=== PATIENT | male | born 1965 | race Caucasian/White ===

== ENCOUNTER 2019-09-29 13:00 | Emergency (ER) | payer SELFPAY ==
--- NOTE | 2019-09-29 14:21 | EDM.PDOC ---
ED HPI GENERAL MEDICAL PROBLEM - General Chief Complaint: ENT Problem Stated Complaint: EAR INFECTION Time Seen by Provider: 09/29/19 13:49 Source of Information: Reports: Patient History Limitations: Reports: No Limitations - History of Present Illness INITIAL COMMENTS - FREE TEXT/NARRATIVE: Patient is a 54-year-old male who presents with complaints of infection to his bilateral external ears. He states this has been going on for 2 months. He does have open areas and will drain intermittently. He was seen in the walk-in clinic at [facility] about 10 days ago and started on a course of clindamycin 3 times daily for 7 days. He states he's been off of these medications for about 3 days and continues to have pain and drainage to the area. Denies any fevers or chills. Onset: Other - Related Data Allergies Allergy/AdvReac Type Severity Reaction Status Date / Time No Known Allergies Allergy Verified 02/04/16 17:01 Home Meds: Home Meds LORazepam [Ativan] 1 mg PO Q4H PRN 02/04/16 [History] Sertraline HCl 100 mg PO DAILY 02/04/16 [History] atenoloL [Atenolol] 150 mg PO BID 02/04/16 [History] Doxycycline [Vibramycin] 100 mg PO BID #20 cap 09/29/19 [Rx] Mupirocin Calcium [Mupirocin] 15 gm TP TID 10 Days #1 cream..g. 09/29/19 [Rx] Past Medical History HEENT History: Reports: Impaired Vision Cardiovascular History: Reports: Hypertension Genitourinary History: Reports: Renal Calculus, Other (See Below) Other Genitourinary History: history of kidney stones Psychiatric History: Reports: Anxiety, Depression - Past Surgical History HEENT Surgical History: Reports: Tonsillectomy Male Surgical History: Reports: Kidney Stone Extraction Social & Family History - Family History Family Medical History: Noncontributory - Tobacco Use Smoking Status *Q: Current Every Day Smoker Years of Tobacco use: 30 Packs/Tins Daily: 0.3 - Caffeine Use Caffeine Use: Reports: Coffee, Soda - Alcohol Use Days Per Week of Alcohol Use: 7 Number of Drinks Per Day: 4 Total Drinks Per Week: 28 - Recreational Drug Use Recreational Drug Use: Yes Drug Use in Last 12 Months: Yes Recreational Drug Type: Reports: Marijuana/Hashish Recreational Drug Use Frequency: Socially ED ROS ENT - Review of Systems Review Of Systems: Comprehensive ROS is negative, except as noted in HPI. ED EXAM, ENT - Physical Exam Exam: See Below Exam Limited By: No Limitations General Appearance: Alert, WD/WN, No Apparent Distress Ears: Normal Canal, Normal TMs, Auricular Erythema, Auricular Tenderness, Other (scattered scabs to bilateral auricles) Mouth/Throat: Normal Inspection, Normal Oropharynx Neck: Supple, Non-Tender, Lymphadenopathy (L), Lymphadenopathy (R) Respiratory/Chest: No Respiratory Distress, Lungs Clear, Normal Breath Sounds, No Accessory Muscle Use, Chest Non-Tender Cardiovascular: Normal Peripheral Pulses, Regular Rate, Rhythm, No Edema, No Murmur Neurological: Alert, Oriented, Normal Cognition Psychiatric: Normal Affect, Normal Mood Course - Vital Signs Last Recorded V/S: Last Vital Signs Temp 99.6 F 09/29/19 13:32 Pulse 93 09/29/19 13:32 Resp 16 09/29/19 13:32 BP 150/112 H 09/29/19 13:32 Pulse Ox 97 09/29/19 13:32 - Re-Assessments/Exams Free Text/Narrative Re-Assessment/Exam: on exam, patient does appear to have cellulitis of the bilateral external ears. TMs and ear canals are normal. He appears to have been picking at the areas as there are scattered scabs throughout. I did call [facility] walk-in clinic and was advised the patient was put on clindamycin for 7 days. Patient reports that he did finish this treatment. I will start him on a course of doxycycline 100 mg twice daily for 10 days. I will also order muprocin ointment to applied topically. I will recommend that he follows up with a primary care provider at the completion of that treatment to have his ears reassessed. Discharge instructions as noted. Departure - Departure Time of Disposition: 14:21 Disposition: Home, Self-Care 01 Condition: Fair Clinical Impression: Cellulitis of external ear, bilateral - Discharge Information *PRESCRIPTION DRUG MONITORING PROGRAM REVIEWED*: No *COPY OF PRESCRIPTION DRUG MONITORING REPORT IN PATIENT CARL: No Prescriptions: Doxycycline [Vibramycin] 100 mg PO BID #20 cap Mupirocin Calcium [Mupirocin] 15 gm TP TID 10 Days #1 cream..g. Instructions: Cellulitis, Adult, [id number] Referrals: PCP,None [Primary Care Provider] - Forms: ED Department Discharge Additional Instructions: You were seen in the emergency department today for infection of both external ears. you have been started on a course of doxycycline twice daily for 10 days. Take this medications as prescribed. Try to avoid picking at the areas as this can make the infection worse or spread. I recommend that you follow-up with a primary care provider at the completion of this treatment to have your ears rechecked. If you experience any new or worsening symptoms, please do not hesitate to return to the emergency department. Sepsis Event Note - Evaluation Sepsis Screening Result: No Definite Risk - Focused Exam Vital Signs: Vital Signs Temp Pulse Resp BP Pulse Ox 09/29/19 13:32 99.6 F 93 16 150/112 H 97 Date Exam was Performed: 09/29/19 Time Exam was Performed: 17:15
== END 2019-09-29 15:05 | disposition home or self-care (01) ==
LOC: JD.ED 13:00
CPT/HCPCS: 99282; 99283

== ENCOUNTER 2020-08-05 18:25 | Emergency (ER) | payer MEDICAID ==
[2020-08-05 18:39] VITALS: BP 121/92; PULSE 92
[2020-08-05] MEDS ORDERED: Doxycycline 100 MG Cap PO ONE (18:58)
--- NOTE | 2020-08-05 19:11 | EDM.PDOC ---
ED HPI GENERAL MEDICAL PROBLEM - General Chief Complaint: Skin Complaint Stated Complaint: SKIN INFECTION SPREADING Time Seen by Provider: 08/05/20 18:44 Source of Information: Reports: Patient, RN Notes Reviewed History Limitations: Reports: No Limitations - History of Present Illness INITIAL COMMENTS - FREE TEXT/NARRATIVE: Patient is a 55-year-old male presenting to the emergency department with complaints of a skin infection on his face. Symptoms began around of this last week which would have been 4 days ago. He states that there was a small area on his right cheek that was quite red, however this has since gone down. He also complains of crusting and drainage to his left earlobe and left cheek near the left tragus. Patient admits that he is constantly picking at the area. On , he took a needle to an area that he thought was a pimple on the left side of his face and it slipped causing a 4 cm laceration near his ear. He states "I probably should have come in to get it closed". He denies any fever, chills, nausea, vomiting, or diarrhea. Patient does have a history of skin infections to his ears and face, likely MRSA. He was seen in this emergency department approximate 10 months ago with similar symptoms. He was fully put on clindamycin at the walk-in clinic which did not clear the infection. Here in the ER, he was put on doxycycline which she states did resolve the infection. - Related Data Allergies Allergy/AdvReac Type Severity Reaction Status Date / Time No Known Allergies Allergy Verified 08/05/20 18:40 Home Meds: Home Meds LORazepam [Ativan] 1 mg PO Q4H PRN 02/04/16 [History] atenoloL [Atenolol] 150 mg PO BID 02/04/16 [History] Mupirocin Calcium [Mupirocin] 15 gm TP TID 10 Days #1 cream..g. 09/29/19 [Rx] Doxycycline [Vibramycin] 100 mg PO BID 14 Days #28 tab 08/05/20 [Rx] Past Medical History HEENT History: Reports: Impaired Vision Cardiovascular History: Reports: Hypertension Genitourinary History: Reports: Renal Calculus, Other (See Below) Other Genitourinary History: history of kidney stones Psychiatric History: Reports: Anxiety, Depression - Infectious Disease History Infectious Disease History: Reports: Other (See Below) Other Infectious Disease History: staph - Past Surgical History HEENT Surgical History: Reports: Tonsillectomy Male Surgical History: Reports: Kidney Stone Extraction Social & Family History - Family History Family Medical History: No Pertinent Family History - Tobacco Use Tobacco Use Status *Q: Current Every Day Tobacco User Years of Tobacco use: 30 Packs/Tins Daily: 0.7 - Caffeine Use Caffeine Use: Reports: Coffee, Soda - Alcohol Use Days Per Week of Alcohol Use: 7 Number of Drinks Per Day: 6 Total Drinks Per Week: 42 - Recreational Drug Use Recreational Drug Use: Yes Recreational Drug Type: Reports: Marijuana/Hashish Recreational Drug Use Frequency: Daily ED ROS GENERAL - Review of Systems Review Of Systems: See Below Constitutional: Reports: No Symptoms. Denies: Fever, Chills, Weakness Respiratory: Reports: No Symptoms Cardiovascular: Reports: No Symptoms Endocrine: Reports: No Symptoms GI/Abdominal: Reports: No Symptoms : Reports: No Symptoms Musculoskeletal: Reports: No Symptoms Skin: Reports: Other ("Skin infection "right cheek, left cheek, and left earlobe) Neurological: Reports: No Symptoms Psychiatric: Reports: No Symptoms Hematologic/Lymphatic: Reports: No Symptoms Immunologic: Reports: No Symptoms ED EXAM, SKIN/RASH Exam: See Below Exam Limited By: No Limitations General Appearance: Alert, WD/WN, Anxious, Other (Fidgety, picking at his face and ears) Ears: Normal Canal, Normal TMs, Other (Small open, crusted lesion to the left earlobe.) Head: Other (One centimeter erythematous area to right cheek. 5 cm dry, crusted area in the left cheek. 4 cm gaping, dried, laceration to the left cheek near the ear. No obvious, redness or warmth to the area.) Respiratory/Chest: No Respiratory Distress, Lungs Clear, Normal Breath Sounds, No Accessory Muscle Use, Chest Non-Tender Cardiovascular: Normal Peripheral Pulses, Regular Rate, Rhythm, No Edema, No Gallop, No JVD, No Murmur, No Rub GI/Abdominal: Normal Bowel Sounds, Soft, Non-Tender, No Organomegaly, No Distention, No Abnormal Bruit, No Mass Neurological: Alert, Oriented, CN II-XII Intact, Normal Cognition, Normal Gait, Normal Reflexes, No Motor/Sensory Deficits Psychiatric: Normal Affect, Normal Mood Course - Vital Signs Last Recorded V/S: Last Vital Signs Temp 98.1 F 08/05/20 18:38 Pulse 92 08/05/20 18:38 Resp 18 08/05/20 18:38 BP 121/92 H 08/05/20 18:38 Pulse Ox 100 08/05/20 18:38 - Orders/Labs/Meds Meds: Medications Discontinued Medications Generic Name Dose Route Start Last Admin Trade Name Megan PRN Reason Stop Dose Admin Doxycycline Hyclate 200 mg 08/05/20 18:58 08/05/20 19:03 Vibramycin PO 08/05/20 18:59 200 mg ONETIME ONE Administration - Re-Assessments/Exams Free Text/Narrative Re-Assessment/Exam: Patient is a 55-year-old male presenting to the emergency department with complaints of "skin infection "scattered on his face. On exam, there is a 1 cm area of redness and erythema to the right cheek with no drainage. On the left side of his face, there is a 5 cm rounded area that is dried and crusted over. He has a 4 cm gaping laceration that is dried and not draining. There is a small, crusted lesion on his left earlobe. I had seen this patient in the emergency department proxy 10 months ago with similar symptoms, however this is much more minor as compared to his condition 10 months ago. Patient chronically picks at his face. 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 He has no signs of systemic infection. He has had no fevers, vital signs in triage were stable, he has had no nausea, vomiting, or diarrhea. He responded well to doxycycline last time. We will start him on doxycycline 100 mg twice daily for 14 days. He will receive a 200 mg dose in the ER tonight and a prescription will be sent to his pharmacy. Recommend that he follow-up with his primary care provider on Thursday or of this week to have it rechecked. Return to ER as needed. Departure - Departure Time of Disposition: 19:14 Disposition: Home, Self-Care 01 Condition: Good Clinical Impression: Cellulitis Qualifiers: Site of cellulitis: face Qualified Code(s): L03.211 - Cellulitis of face - Discharge Information *PRESCRIPTION DRUG MONITORING PROGRAM REVIEWED*: No *COPY OF PRESCRIPTION DRUG MONITORING REPORT IN PATIENT CARL: No Prescriptions: Doxycycline [Vibramycin] 100 mg PO BID 14 Days #28 tab Instructions: Cellulitis, Adult Referrals: Ceasar York MD [Primary Care Provider] - Forms: ED Department Discharge Additional Instructions: You were seen in the emergency department today for recurrence of skin infection on your face. As we discussed, you are likely an MRSA carrier. Recommend that you refrain from picking at the lesions on your face as this will cause them to spread and worsen. You have been started on doxycycline. Take this medication as prescribed. Recommend follow-up with your primary care provider on Thursday or of this week to have your wounds rechecked. We should develop fever, chills, nausea, vomiting, or any other concerning symptoms, please return to the emergency department for reevaluation. Sepsis Event Note (ED) - Evaluation Sepsis Screening Result: No Definite Risk - Focused Exam Vital Signs: Vital Signs Temp Pulse Resp BP Pulse Ox 08/05/20 18:38 98.1 F 92 18 121/92 H 100
== END 2020-08-05 19:28 | disposition home or self-care (01) ==
LOC: JD.ED 18:25
DX: L03.211 Cellulitis of face (principal); F17.210 Nicotine dependence, cigarettes, uncomplicated; I10 Essential (primary) hypertension; Z79.899 Other long term (current) drug therapy
CPT/HCPCS: 99283; A9270

== ENCOUNTER 2023-04-21 09:12 | Emergency (ER) | payer OTHER, MEDICAID ==
[2023-04-21] MEDS ORDERED: HYDROmorphone 1 MG/ML Syringe IM ONE (09:51)
[2023-04-21 15:31] VITALS: BP 134/93; PULSE 101
== END 2023-04-21 14:03 | disposition home or self-care (01) ==
LOC: JD.ED 09:12
DX: S32.9XXA Fracture of unspecified parts of lumbosacral spine and pelvis, initial encounter for closed fracture (principal); I10 Essential (primary) hypertension; V19.9XXA Pedal cyclist (driver) (passenger) injured in unspecified traffic accident, initial encounter
CPT/HCPCS: 73502; 73700; 96372; 99284; J1170